=== PATIENT | male | born 1990 | race Caucasian/White ===

== ENCOUNTER 2022-01-11 23:15 | Emergency (ER) | payer MEDICAID ==
[~2022-01-11] VITALS: Ht 170.2 cm; Wt 128.0 kg
[2022-01-11 23:44] VITALS: BP 176/92
[2022-01-12] MEDS ORDERED: ACETAMINOPHEN 325MG TABLET PO ONE (01:15)
[2022-01-12] MEDS: METHOCARBAMOL 750MG TABLET PO SCH ×2 (01:15→02:45)
[2022-01-12] MEDS: LIDOCAINE 5% PATCH TOP SCH ×2 (01:15→02:19)
[2022-01-12] MEDS ORDERED: KETOROLAC 60MG/2ML VIAL IM ONE (01:15)
[2022-01-12] MEDS ORDERED: IBUP-2028 MT (02:45)
[2022-01-12] MEDS ORDERED: METH-653 MT (02:45)
[2022-01-12] MEDS ORDERED: LIDO1ADH23 TP (02:45)
[2022-01-12] MEDS ORDERED: TOPUD PO (02:45)
== END 2022-01-12 03:00 | disposition home or self-care (01) ==
LOC: ER 23:15
DX: M54.2 Cervicalgia (principal); M54.50 Low back pain, unspecified; V49.49XA Driver injured in collision with other motor vehicles in traffic accident, initial encounter; Y93.89 Activity, other specified; Y92.89 Other specified places as the place of occurrence of the external cause; Y99.8 Other external cause status; Z87.891 Personal history of nicotine dependence
CPT/HCPCS: 72040; 72100; 96372; 99284; J1885